=== PATIENT | male | born 1995 | race Caucasian/White ===

== ENCOUNTER 2016-07-05 14:48 | Emergency (ER) | payer OTHER ==
[~2016-07-05] VITALS: Ht 172.7 cm; Wt 81.7 kg
[2016-07-05 14:54] VITALS: TEMP 37.1; Ht 172.7 cm; Wt 81.7 kg
[2016-07-05] MEDS ORDERED: CEFTRIAXONE SOD INJ 1 GM ADDVIAL IV STA (15:17)
[2016-07-05] MEDS ORDERED: SULFAMETHOXAZOLE/TRIMETHOPRIM DS 800/160MG TAB PO STA (15:17)
[2016-07-05] MEDS ORDERED: IBUP-1050 PO (15:32)
[2016-07-05] MEDS ORDERED: SULF800T23 PO (15:42)
[2016-07-05] MEDS ORDERED: CEPH500C PO (15:42)
--- NOTE | 2016-07-05 15:43 | EMERGENCY ROOM VISIT NOTE ---
History First contact with patient: 15:10 Chief Complaint: FACIAL PAIN/INJURY Stated Complaint: SWELLING/PAIN IN FACE History of Present Illness The patient is a 21 year old male who presents to the Emergency Department by private vehicle for evaluation of swelling and redness to the LEFT-sided face. He reports that he noticed a pimple on his face on Sunday. He reports that he popped it on Sunday as well. He had increasing swelling to the face yesterday. He did ice the area for comfort which did seem to help his symptoms. He reports persistent swelling which was concerning to him. The patient rates his current discomfort as a 3/10. He denies any fevers, chills, blurry vision, double vision, nausea, vomiting, or neck pain/stiffness. The patient is not a diabetic. The patient is up-to-date on all vaccinations and immunizations. Tetanus status is up-to-date. No known history of MRSA. Review of Systems A complete 10-point Review of Systems was discussed with the patient, with pertinent positives and negatives listed in the History of Present Illness. All remaining Review of Systems questions can be considered negative unless otherwise specified. Social History Smoking Status: Former Smoker Smokeless Tobacco Use: No Drug Use: none Marital Status: single Housing Status: lives with roommate Occupation Status: [employer] student Current/Historical Medications Scheduled Cephalexin Monohydrate (Keflex), 500 MG PO TID Ibuprofen (Advil), 400 MG PO PRN UD Sulfa/Trimethoprim (Bactrim Ds 800MG/160MG), 1 TAB PO BID Allergies Coded Allergies: Shellfish Allergy (Verified Allergy, Intermediate, GI UPSET, ITCHY MOUTH, 07/05/16) Physical Exam Vital Signs Date Time Temp Pulse Resp B/P Pulse Ox O2 Delivery O2 Flow Rate FiO2 07/05/16 16:39 94 18 147/75 99 Room Air 07/05/16 14:54 37.1 100 20 145/81 97 Room Air Pain Rating (0-10): 3 Physical Exam VITAL SIGNS - Vital signs and nursing notes were reviewed. GENERAL - 21-year-old male appearing his stated age who is in no acute distress. Communicates well with provider and answers questions appropriately. SKIN - mild erythema noted with minimal edema to the LEFT-sided cheek. There is a small area of induration is palpable. No warmth to touch. No lymphangitic streaking. No purulent discharge or drainage noted. HEAD - Normocephalic, Atraumatic. No Ragland's Sign or Raccoon's Eyes. No depressed skull fractures palpable. EYES - PERRL with EOMI bilaterally. EARS - No deformities of external structures noted on gross examination bilaterally. No pain elicited with palpation of the tragus bilaterally. External auditory canals without discharge or otorrhea. Tympanic membranes pearly hernandez without retraction or bulging. No fluid or purulent material visualized behind the TM. NOSE - Midline and without cyanosis. No epistaxis or purulent drainage noted. Septum midline without deviation or septal hematoma noted. MOUTH/OROPHARYNX - Without perioral cyanosis. Buccal mucosa pink and moist and without leukoplakia. Tongue midline with equal elevation of palate bilaterally. No tonsillar hypertrophy, erythema, or exudates noted. Good dentition noted. NECK - Neck with FROM. Supple to palpation. no lymphadenopathy noted. No nuchal rigidity. Medical Decision & Procedures Medications Administered Medications (Trade) Dose Ordered Sig/Frank Route Start Time Stop Time Status Last Admin Dose Admin Ceftriaxone Sodium (Rocephin Inj) 1 gm NOW STAT IV 07/05/16 15:17 2 15:19 DC 07/05/16 15:53 1 GM Trimethoprim/ Sulfamethoxazole (Septra Ds 800/ 160MG Tab) 1 tab NOW STAT PO 07/05/16 15:17 07/05/16 15:19 DC 07/05/16 15:53 1 TAB ED Course Patient was seen and evaluated by myself. IV lock was established. The patient was treated with 1 g of Rocephin intravenously and 1 Bactrim orally. The patient was educated on following up in 48 hours for wound recheck. He can do this at [facility]. He will certainly return to the emergency part considering the event of any changing or worsening symptoms. Patient was educated on worrisome symptoms for return visit to the emergency department. Patient discharged home afebrile and in good condition. Medical Decision Given the patient's presentation and exam findings, I did elect to perform the above-mentioned workup. The patient presents today with pain and swelling to the LEFT sided face after popping a pimple. The patient does have some local induration likely secondary to an early facial cellulitis. He has no fever. The patient has no immune cup my states of concern. He is not a diabetic. He was treated with intravenous Rocephin as well as oral Bactrim for MRSA coverage. There are no draining wounds for culture. Patient will follow-up with [facility] or return to the emergency department 48 hours for wound recheck. He will return sooner in the setting of any changing or worsening symptoms. Patient discharged home afebrile and in good condition. In the evaluation and treatment of this patient, the following differential diagnoses were considered: Dermatitis, foreign body, facial abscess, dental abscess, periapical abscess, orbital cellulitis, amongst others. Impression Primary Impression: Facial cellulitis Departure Information Dispostion Home / Self-Care Condition GOOD Prescriptions Sulfa/Trimethoprim (Bactrim Ds 800MG/160MG) Tab 1 TAB PO BID for 10 Days, #20 TAB Prov: Wing Chery PA-C 07/05/16 Cephalexin Monohydrate (Keflex) 500 Mg Cap 500 MG PO TID for 10 Days, #30 CAP Prov: Wing Chery PA-C 07/05/16 Referrals No Doctor, Assigned (PCP) Patient Instructions Cellulitis - [facility], [facility] Additional Instructions You were seen in the Emergency Department for cellulitis of the face. You NEED to have this rechecked in 48 hours. Return to the emergency department sooner if your symptoms significantly worsen in this timeframe. You were prescribed Keflex and Bactrim to be taken as prescribed. Both of these medications are antibiotics. Stop these medications and contact a medical provider if you were to develop any significant adverse side effects including: wheezing, shortness of breath, passing out, vomiting, or a diffuse rash. Always take antibiotics as directed and COMPLETE the ENTIRE course regardless of the improvement of your symptoms. Look for signs of infection of the wound including: increased pain, swelling, foul discharge, streaking, or increased temperature. If any of these are noticed you should return to the Emergency Department for further assessment and treatment. For pain control, you can use the following [id number] medicines (if >12 yo): - Regular strength (325mg/tab) Tylenol (acetaminophen) 2 tabs every 4-6 hours as needed. Do not exceed 12 tablets in a 24 hour period. Avoid taking more than 4 grams (4000 mg) of Tylenol per day. This includes any other sources of acetaminophen you may take on a regular basis. - Regular strength (200 mg/tab) Advil (ibuprofen) 1-2 tabs every 4-6 hours as needed. Do not exceed a dose of 3200 mg per day. Return to the emergency department if your symptoms worsen despite treatment course outlined above.
[2016-07-05 16:39] VITALS: BP 147/75; PULSE 94; O2SAT 99
== END 2016-07-05 16:39 | disposition home or self-care (01) ==
LOC: C.EDB 14:50 → C.EDD 16:39
DX: L03.211 Cellulitis of face (principal)